=== PATIENT | male | born 1965 | race Caucasian/White ===

== ENCOUNTER 2017-07-16 15:30 | Emergency (ER) | payer MEDICAID ==
[~2017-07-16] VITALS: Ht 182.9 cm; Wt 101.6 kg
[2017-07-16 16:11] VITALS: BP 168/97
== END 2017-07-16 16:57 | disposition left against medical advice (07) ==
LOC: ER 15:35
DX: L02.413 Cutaneous abscess of right upper limb (principal); Z53.21 Procedure and treatment not carried out due to patient leaving prior to being seen by health care provider
CPT/HCPCS: 73080

== ENCOUNTER 2017-07-18 15:21 | Emergency (ER) | payer MEDICAID ==
[~2017-07-18] VITALS: Ht 182.9 cm; Wt 101.6 kg
[2017-07-18] MEDS ORDERED: cloNIDine HCL 0.1 MG TAB ONE (15:56)
[2017-07-18] MEDS ORDERED: cloNIDine HCL 0.1 MG TAB PO ONE (16:15)
[2017-07-18 19:52] VITALS: BP 164/96
[2017-07-18] MEDS ORDERED: ONDANSETRON ODT 4 MG TAB PO ONE ×2 (20:24→20:30)
[2017-07-18] MEDS ORDERED: cefTRIAXone SOD 1,000 MG VL ONE (20:35)
[2017-07-18] MEDS ORDERED: LIDOCAINE 1% (LOCAL ANESTH.) PF 5ml SDV ONE (20:36)
[2017-07-18] MEDS ORDERED: cefTRIAXone SOD 1,000 MG VL IM ONE (20:45)
[2017-07-18] MEDS ORDERED: cefTRIAXone W LIDOCAINE 1 GM IM IM ONE ×2 (20:45→21:00)
[2017-07-18] MEDS ORDERED: LIDOCAINE 1% (LOCAL ANESTH.) PF 5ml SDV IJ ONE (21:00)
== END 2017-07-18 20:43 | disposition home or self-care (01) ==
LOC: ER 15:23
DX: M25.421 Effusion, right elbow (principal); I10 Essential (primary) hypertension
CPT/HCPCS: 20605; 96372; 99284; J0696; Q0162

== ENCOUNTER 2019-03-04 07:18 | Emergency (ER) | payer MEDICAID ==
[~2019-03-04] VITALS: Ht 182.9 cm; Wt 108.9 kg
[2019-03-04 07:25] VITALS: BP 181/93
[2019-03-04] MEDS ORDERED: IBUPROFEN 800 MG TAB PO ONE (08:15)
== END 2019-03-04 08:36 | disposition home or self-care (01) ==
LOC: ER 07:18
DX: S92.335A Nondisplaced fracture of third metatarsal bone, left foot, initial encounter for closed fracture (principal); I10 Essential (primary) hypertension; W22.8XXA Striking against or struck by other objects, initial encounter; Y93.B9 Activity, other involving muscle strengthening exercises; Y92.89 Other specified places as the place of occurrence of the external cause; Y99.8 Other external cause status
CPT/HCPCS: 29515; 73630

== ENCOUNTER 2021-05-22 16:51 | Inpatient (IN) | payer MEDICAID, OTHER ==
[~2021-05-22] VITALS: Ht 185.4 cm; Wt 98.7 kg
[2021-05-22] MEDS ORDERED: FUROSEMIDE 40 MG/4 ML VIAL IV ONE (17:15)
[2021-05-22 17:48] LABS: Basophils # (auto) 0.1 10 ^3/uL (0-0.2); Eosinophils # (auto) 0.1 10 ^3/uL (0-0.8); Eosinophils % (auto) 2.3 % (0.0-7.0); Hematocrit 34.8 % (41.0-53.0); Hemoglobin 11.3 g/dL (13.5-17.5); Lymphocytes # (auto) 1.4 10 ^3/uL (0.4-5.4); Lymphocytes % (auto) 21.3 % (10.0-50.0); Mean Corpuscular Hemoglobin 29.5 pg (28.0-32.0); Mean Corpuscular Hgb Conc. 32.6 g/dL (32.0-36.0); Mean Corpuscular Volume 90.6 fL (80.0-100.0); Monocytes # (auto) 0.6 10 ^3/uL (0-1.3); Monocytes % (auto) 9.3 % (0.0-12.0); Neutrophils # (auto) 4.1 10 ^3/uL (1.6-8.6); Neutrophils % (auto) 65.1 % (37.0-80.0); Nucleated Red Blood Cells % 0.1 %; Red Blood Cells 3.85 10^6/uL (4.5-5.90); Red Cell Distribution Width 15.2 % (11.8-14.3); White Blood Cell 6.4 10^3/uL (4.4-10.8)
[2021-05-22 18:03] LABS: Albumin 2.5 g/dL (3.4-5.0); Calcium 8.1 mg/dL (8.5-10.1); Potassium 4.2 mmol/L (3.5-5.1)
[2021-05-22 18:08] LABS: BUN/Creatinine Ratio 20.4; Bilirubin, Total 0.5 mg/dL (0.2-1.0); Total Protein 6.8 g/dL (6.4-8.2)
[2021-05-22] MEDS ORDERED: IOHEXOL 350 MG/ML 100ML IJ ONE (19:42)
[2021-05-22] MEDS ORDERED: NITROGLYCERIN 0.4 MG SL TAB SL PRN (20:15)
[2021-05-22] MEDS ORDERED: MORPHINE SULFATE INJECTION 2 MG/ML SYRG IV PRN (20:15)
[2021-05-22 21:11] LABS: Urine Bacteria FEW /hpf (None Seen); Urine Blood TRACE /uL (Negative); Urine Specific Gravity 1.016 (1.001-1.035); Urine WBC <1 /hpf (0 - 3)
[2021-05-22 22:45] VITALS: BP 145/111
[2021-05-23] MEDS ORDERED: CARB200T PO (00:32)
[2021-05-23 05:00] VITALS: BP 160/109
[2021-05-23] MEDS: FUROSEMIDE 40 MG/4 ML VIAL IV SCH ×2 (05:39→18:02)
[2021-05-23] MEDS ORDERED: ACETAMINOPHEN 325 MG TAB PO PRN (05:45)
[2021-05-23] MEDS ORDERED: NIFEdipine 10 MG CAP PO ONE (05:45)
[2021-05-23 08:09] LABS: Basophils # (auto) 0.1 10 ^3/uL (0-0.2); Basophils % (auto) 1.3 % (0.0-2.0); Eosinophils # (auto) 0.1 10 ^3/uL (0-0.8); Hematocrit 36.7 % (41.0-53.0); Hemoglobin 12.3 g/dL (13.5-17.5); Lymphocytes # (auto) 1.3 10 ^3/uL (0.4-5.4); Lymphocytes % (auto) 18.7 % (10.0-50.0); Mean Corpuscular Hgb Conc. 33.4 g/dL (32.0-36.0); Monocytes # (auto) 0.7 10 ^3/uL (0-1.3); Monocytes % (auto) 10.3 % (0.0-12.0); Neutrophils # (auto) 4.5 10 ^3/uL (1.6-8.6); Neutrophils % (auto) 67.7 % (37.0-80.0); Nucleated Red Blood Cells % 0.1 %; Red Blood Cells 4.08 10^6/uL (4.5-5.90); Red Cell Distribution Width 14.9 % (11.8-14.3); White Blood Cell 6.7 10^3/uL (4.4-10.8)
[2021-05-23 08:21] LABS: Albumin 2.6 g/dL (3.4-5.0); Calcium 8.8 mg/dL (8.5-10.1); Potassium 4.1 mmol/L (3.5-5.1)
[2021-05-23 08:23] LABS: BUN/Creatinine Ratio 18.8
[2021-05-23 08:26] LABS: Bilirubin, Total 0.7 mg/dL (0.2-1.0); Total Protein 6.8 g/dL (6.4-8.2)
[2021-05-23 09:26] VITALS: BP 184/119
[2021-05-23] MEDS ORDERED: ENOXAPARIN SOD 40 MG/0.4 ML SYRINGE SC SCH (10:00)
[2021-05-23] MEDS ORDERED: HEPARIN SODIUM (PORCINE) 5000 UNITS/ML 1ML VIAL IV ONE ×2 (10:15→21:15)
[2021-05-23] MEDS ORDERED: HEPARIN DRIP/D5W 100UNITS/ML 250 ML IV SCH (10:15)
[2021-05-23] MEDS ORDERED: cloNIDine HCL 0.1 MG TAB PO ONE (10:45)
[2021-05-23 11:30] VITALS: BP 154/106
[2021-05-23] MEDS: carBAMazepine 200 MG TAB PO SCH ×2 (12:17→21:47)
[2021-05-23 12:53] LABS: INR 1.33 (0.9-1.15); Partial Thromboplastin Time 27.1 sec (23.6-33.0)
[2021-05-23] MEDS: AZITHROMYCIN 500MG/ 250ML 250 ML IV SCH (16:49)
[2021-05-23] MEDS: cefTRIAXone 1GM/50ML D5W 50 ML IV SCH (16:49)
[2021-05-23 17:00] VITALS: BP 158/103
[2021-05-23 20:33] LABS: INR 1.37 (0.9-1.15); Partial Thromboplastin Time 28.1 sec (23.6-33.0)
[2021-05-23 22:00] VITALS: BP 124/95
[2021-05-24 03:33] LABS: INR 1.29 (0.9-1.15); Partial Thromboplastin Time 23.4 sec (23.6-33.0)
[2021-05-24] MEDS ORDERED: HEPARIN SODIUM (PORCINE) 5000 UNITS/ML 1ML VIAL IV ONE ×4 (04:30→18:45)
[2021-05-24 05:00] VITALS: BP 157/100
[2021-05-24] MEDS: FUROSEMIDE 40 MG/4 ML VIAL IV SCH ×2 (05:00→17:55)
[2021-05-24] MEDS ORDERED: NIFEdipine 10 MG CAP PO ONE (05:15)
[2021-05-24 08:49] VITALS: BP 146/98
[2021-05-24] MEDS ORDERED: CARB200T4 PO (09:51)
[2021-05-24 10:50] LABS: INR 1.32 (0.9-1.15); Partial Thromboplastin Time 34.7 sec (23.6-33.0)
[2021-05-24] MEDS: carBAMazepine 200 MG TAB PO SCH ×2 (11:00→21:15)
[2021-05-24] MEDS: cefTRIAXone 1GM/50ML D5W 50 ML IV SCH (11:00)
[2021-05-24] MEDS: MORPHINE SULFATE INJECTION 2 MG/ML SYRG IV PRN (11:15)
[2021-05-24] MEDS: HEPARIN DRIP/D5W 100UNITS/ML 250 ML IV SCH ×2 (12:01→19:13)
[2021-05-24] MEDS: AZITHROMYCIN 500MG/ 250ML 250 ML IV SCH (12:03)
[2021-05-24 13:00] VITALS: BP 163/116
[2021-05-24 16:50] VITALS: BP 148/110
[2021-05-24 18:15] LABS: INR 1.31 (0.9-1.15); Partial Thromboplastin Time 33.4 sec (23.6-33.0)
[2021-05-24] MEDS: SACUBITRIL-VALSARTAN 24mg/26mg TAB PO SCH (21:15)
[2021-05-24] MEDS: ZOLPIDEM TARTRATE 5 MG TAB PO PRN (21:15)
[2021-05-25 00:02] VITALS: BP 167/104
[2021-05-25 02:02] LABS: INR 1.31 (0.9-1.15); Partial Thromboplastin Time 48.5 sec (23.6-33.0)
[2021-05-25 05:39] LABS: Basophils # (auto) 0.1 10 ^3/uL (0-0.2); Basophils % (auto) 1.7 % (0.0-2.0); Eosinophils # (auto) 0.1 10 ^3/uL (0-0.8); Hematocrit 36.3 % (41.0-53.0); Hemoglobin 12.1 g/dL (13.5-17.5); Lymphocytes # (auto) 1.9 10 ^3/uL (0.4-5.4); Lymphocytes % (auto) 26.9 % (10.0-50.0); Mean Corpuscular Hemoglobin 29.7 pg (28.0-32.0); Mean Corpuscular Hgb Conc. 33.4 g/dL (32.0-36.0); Monocytes # (auto) 0.8 10 ^3/uL (0-1.3); Monocytes % (auto) 11.7 % (0.0-12.0); Neutrophils # (auto) 4.1 10 ^3/uL (1.6-8.6); Neutrophils % (auto) 57.7 % (37.0-80.0); Nucleated Red Blood Cells % 0.1 %; Red Blood Cells 4.08 10^6/uL (4.5-5.90); Red Cell Distribution Width 15.1 % (11.8-14.3); White Blood Cell 7.2 10^3/uL (4.4-10.8)
[2021-05-25 05:49] LABS: INR 1.29 (0.9-1.15); Partial Thromboplastin Time 53.5 sec (23.6-33.0)
[2021-05-25] MEDS: FUROSEMIDE 40 MG/4 ML VIAL IV SCH ×2 (06:59→18:00)
[2021-05-25 08:53] VITALS: BP 151/100
[2021-05-25 09:27] LABS: INR 1.32 (0.9-1.15); Partial Thromboplastin Time 55.8 sec (23.6-33.0)
[2021-05-25 11:30] LABS: INR 1.3 (0.9-1.15); Partial Thromboplastin Time 53.8 sec (23.6-33.0)
[2021-05-25] MEDS: carBAMazepine 200 MG TAB PO SCH ×2 (11:39→21:34)
[2021-05-25] MEDS: cefTRIAXone 1GM/50ML D5W 50 ML IV SCH (11:39)
[2021-05-25] MEDS: AZITHROMYCIN 500MG/ 250ML 250 ML IV SCH (12:38)
[2021-05-25] MEDS: SACUBITRIL-VALSARTAN 24mg/26mg TAB PO SCH ×2 (13:16→21:34)
[2021-05-25 14:09] VITALS: BP 146/98
[2021-05-25 15:32] VITALS: BP 146/108
[2021-05-25] MEDS: MORPHINE SULFATE INJECTION 2 MG/ML SYRG IV PRN (16:17)
[2021-05-25] MEDS: ZOLPIDEM TARTRATE 5 MG TAB PO PRN (21:34)
[2021-05-25] MEDS: APIXABAN 5 MG TAB PO SCH (21:34)
[2021-05-25 22:00] VITALS: BP 168/96
[2021-05-26 00:58] VITALS: BP 168/96
[2021-05-26 06:06] VITALS: BP 138/84
[2021-05-26] MEDS: FUROSEMIDE 40 MG/4 ML VIAL IV SCH ×2 (06:22→18:00)
[2021-05-26 09:00] VITALS: BP 134/89
[2021-05-26] MEDS: APIXABAN 5 MG TAB PO SCH ×2 (09:45→21:53)
[2021-05-26] MEDS: cefTRIAXone 1GM/50ML D5W 50 ML IV SCH (09:45)
[2021-05-26] MEDS: AZITHROMYCIN 500MG/ 250ML 250 ML IV SCH (09:45)
[2021-05-26] MEDS: SACUBITRIL-VALSARTAN 24mg/26mg TAB PO SCH ×2 (09:46→21:54)
[2021-05-26] MEDS: carBAMazepine 200 MG TAB PO SCH ×2 (09:46→21:54)
[2021-05-26] MEDS: MORPHINE SULFATE INJECTION 2 MG/ML SYRG IV PRN (10:04)
[2021-05-26 13:00] VITALS: BP 133/91
[2021-05-26] MEDS ORDERED: HYDROcodone-ACET 10/325MG TAB PO PRN (13:15)
[2021-05-26] MEDS ORDERED: ACETAMINOPHEN 325 MG TAB PO PRN (15:00)
[2021-05-26] MEDS ORDERED: MORPHINE SULFATE INJECTION 2 MG/ML SYRG IV PRN (15:00)
[2021-05-26 17:00] VITALS: BP 142/95
[2021-05-26 21:44] VITALS: BP 138/94
[2021-05-26] MEDS: ZOLPIDEM TARTRATE 5 MG TAB PO PRN (23:03)
[2021-05-27 05:00] VITALS: BP 136/94
[2021-05-27] MEDS: FUROSEMIDE 40 MG/4 ML VIAL IV SCH ×3 (06:00→18:00)
[2021-05-27 09:00] VITALS: BP 152/94
[2021-05-27] MEDS: APIXABAN 5 MG TAB PO SCH ×2 (10:02→21:57)
[2021-05-27] MEDS: carBAMazepine 200 MG TAB PO SCH ×2 (10:03→21:58)
[2021-05-27] MEDS: SACUBITRIL-VALSARTAN 24mg/26mg TAB PO SCH ×2 (10:04→21:58)
[2021-05-27] MEDS: cefTRIAXone 1GM/50ML D5W 50 ML IV SCH (10:16)
[2021-05-27] MEDS: AZITHROMYCIN 500MG/ 250ML 250 ML IV SCH (10:53)
[2021-05-27 13:00] VITALS: BP 106/80
[2021-05-27 17:00] VITALS: BP 125/73
[2021-05-27] MEDS: ZOLPIDEM TARTRATE 5 MG TAB PO PRN (21:59)
[2021-05-27 22:00] VITALS: BP 141/107
[2021-05-28] MEDS ORDERED: dilTIAZem 25 MG/5 ML VIAL IV ONE (01:00)
[2021-05-28 05:00] VITALS: BP 144/102
[2021-05-28 08:00] VITALS: BP 140/100
[2021-05-28] MEDS: APIXABAN 5 MG TAB PO SCH (10:00)
[2021-05-28] MEDS: AZITHROMYCIN 500MG/ 250ML 250 ML IV SCH ×2 (10:00→10:43)
[2021-05-28] MEDS: cefTRIAXone 1GM/50ML D5W 50 ML IV SCH (10:43)
[2021-05-28] MEDS: SACUBITRIL-VALSARTAN 24mg/26mg TAB PO SCH (10:44)
[2021-05-28] MEDS: carBAMazepine 200 MG TAB PO SCH (10:44)
[2021-05-28 12:00] VITALS: BP 138/96
[2021-05-28 15:00] VITALS: BP 136/92
[2021-05-28 16:45] VITALS: BP 142/103
[2021-05-28] MEDS: FUROSEMIDE 40 MG/4 ML VIAL IV SCH (17:31)
== END 2021-05-28 18:11 | disposition left against medical advice (07) | DRG 139 ==
LOC: ER 16:51 → OVERFLOW 20:10 → WEST WING 22:45 → TELE-WESTW 05-23 05:43
PROVIDERS: ADMIT Internal Medicine; ATTEND Family Medicine
DX: J18.9 Pneumonia, unspecified organism (principal); J96.01 Acute respiratory failure with hypoxia; I50.43 Acute on chronic combined systolic (congestive) and diastolic (congestive) heart failure; E88.09 Other disorders of plasma-protein metabolism, not elsewhere classified; I51.3 Intracardiac thrombosis, not elsewhere classified; I11.0 Hypertensive heart disease with heart failure; R56.9 Unspecified convulsions; D64.9 Anemia, unspecified; F17.210 Nicotine dependence, cigarettes, uncomplicated; Z20.822 Contact with and (suspected) exposure to COVID-19; Z53.29 Procedure and treatment not carried out because of patient's decision for other reasons; R00.0 Tachycardia, unspecified; R74.01 Elevation of levels of liver transaminase levels; R79.89 Other specified abnormal findings of blood chemistry; Z91.19 Patient's noncompliance with other medical treatment and regimen; Z68.28 Body mass index [BMI] 28.0-28.9, adult
CPT/HCPCS: 36415; 71046; 71275; 80053; 81001; 83735; 83880; 84484; 85025; 85379; 85610; 85730; 86850; 86900; 86901; 87426; 93005; 93306; 93970; 96365; 96375; 96376; G0378; J0696